=== PATIENT | female | born 1955 | race Caucasian/White ===

== ENCOUNTER → 2025-03-16 14:54 | Outpatient (REF) | payer MEDICARE, BC, SELFPAY | LOC: HWRCS 14:54 | PROVIDERS: REFERRING PHYSICIAN Internal Medicine Cardiovascular Disease | DX: R94.31 Abnormal electrocardiogram [ECG] [EKG] (principal); R06.09 Other forms of dyspnea; Z82.49 Family history of ischemic heart disease and other diseases of the circulatory system | CPT/HCPCS: 93306 ==

== ENCOUNTER → 2025-03-25 08:35 | Outpatient (REF) | payer MEDICARE, BC, SELFPAY | LOC: HWRCS 08:35 | PROVIDERS: REFERRING PHYSICIAN Internal Medicine Cardiovascular Disease | DX: R94.31 Abnormal electrocardiogram [ECG] [EKG] (principal); R06.09 Other forms of dyspnea; Z82.49 Family history of ischemic heart disease and other diseases of the circulatory system | CPT/HCPCS: 78452; 93017; A9500 ==